=== PATIENT | male | born 1995 | race African-American/Black ===

== ENCOUNTER 2017-04-11 10:50 | Emergency (ER) | payer OTHER ==
[~2017-04-11] VITALS: Ht 182.9 cm; Wt 86.2 kg
[~2017-04-11 10:50] MED LIST: FLONASE 0.05%50 MCG NASAL; LORATIDINE 10 M10 M1 PO; MEDROLDOSEPACK PO; PREDNISONE 20 M20 MG PO; PROAIR HFA8.5 GM INH; PROMETHAZINE D480 ML PO; PROMETHAZINE-C120 ML PO; PROMETHAZINE/C118 ML PO; TESSALON PERLE100 MG PO; VENTOLIN HFA 1818 GM INH; ZPAK PO; ZYRTEC 10 MG TA10 MG PO
[2017-04-11] MEDS ORDERED: MUCINEX D ER 11 EACH PO (11:07)
[2017-04-11] MEDS ORDERED: DELSYM COUGH+C180 M1 PO (11:07)
[2017-04-11] MEDS ORDERED: PREDNISONE 20 M20 MG PO (12:24)
[2017-04-11] MEDS ORDERED: PROMETHAZI6.25 MG/5 PO (12:24)
[2017-04-11 12:53] VITALS: BP 127/69
== END 2017-04-11 12:50 | disposition home or self-care (01) ==
LOC: ER 10:50
DX: J20.8 Acute bronchitis due to other specified organisms (principal); F10.99 Alcohol use, unspecified with unspecified alcohol-induced disorder

== ENCOUNTER 2017-08-20 16:13 | Emergency (ER) | payer OTHER ==
[~2017-08-20] VITALS: Ht 182.9 cm; Wt 90.0 kg
[~2017-08-20 16:13] MED LIST changes: +DELSYM COUGH+C180 M1 PO; +MUCINEX D ER 11 EACH PO; +PROMETHAZI6.25 MG/5 PO
[2017-08-20] MEDS ORDERED: TESSALON PERLE100 MG PO (16:36)
[2017-08-20] MEDS ORDERED: VENTOLIN HFA 1818 GM INH (16:36)
[2017-08-20] MEDS ORDERED: GUAIFEN-CODEINE10 ML PO (16:36)
[2017-08-26] MEDS ORDERED: GUAIFENESIN-CO118 ML PO (16:00)
[2017-08-26] MEDS ORDERED: TESSALON PERLE100 MG PO (16:00)
[2017-08-26] MEDS ORDERED: VENTOLIN HFA 1818 GM INH (16:00)
[2017-10-12] MEDS ORDERED: PREDNISONE 20 M20 MG PO (19:21)
[2017-10-12] MEDS ORDERED: VENTOLIN HFA 1818 GM INH (19:21)
[2018-03-31] MEDS ORDERED: CLARITIN-D 121 EAC1 PO (18:13)
[2018-03-31] MEDS ORDERED: PREDNISONE 20 M20 MG PO (18:13)
[2018-03-31] MEDS ORDERED: VENTOLIN HFA 1818 GM INH (18:13)
== END 2017-08-20 17:11 | disposition home or self-care (01) ==
LOC: ER 16:13
DX: J40 Bronchitis, not specified as acute or chronic (principal)

== ENCOUNTER 2017-09-20 18:44 | Emergency (ER) | payer OTHER ==
[~2017-09-20] VITALS: Ht 182.9 cm; Wt 93.0 kg
[~2017-09-20 18:44] MED LIST changes: +GUAIFEN-CODEINE10 ML PO; +GUAIFENESIN-CO118 ML PO
[2017-09-20] MEDS ORDERED: PENICILLIN V P500 MG PO (19:06)
[2017-09-20] MEDS ORDERED: IBUPROFEN 600600 M1 PO (19:06)
[2017-10-12] MEDS ORDERED: VENTOLIN HFA 1818 GM INH (19:21)
[2017-10-12] MEDS ORDERED: PREDNISONE 20 M20 MG PO (19:21)
[2018-03-31] MEDS ORDERED: VENTOLIN HFA 1818 GM INH (18:13)
[2018-03-31] MEDS ORDERED: CLARITIN-D 121 EAC1 PO (18:13)
[2018-03-31] MEDS ORDERED: PREDNISONE 20 M20 MG PO (18:13)
== END 2017-09-20 19:35 | disposition home or self-care (01) ==
LOC: ER 18:44
DX: K04.7 Periapical abscess without sinus (principal); J06.9 Acute upper respiratory infection, unspecified

== ENCOUNTER 2017-10-14 15:33 | Emergency (ER) | payer OTHER ==
[~2017-10-14] VITALS: Ht 182.9 cm; Wt 93.0 kg
[~2017-10-14 15:33] MED LIST changes: +IBUPROFEN 600600 M1 PO; +PENICILLIN V P500 MG PO
[2017-10-14] MEDS ORDERED: PREDNISONE 20 M20 MG PO (16:03)
[2017-10-14] MEDS ORDERED: PROAIR HFA8.5 GM INH (16:03)
[2018-03-31] MEDS ORDERED: CLARITIN-D 121 EAC1 PO (18:13)
[2018-03-31] MEDS ORDERED: PREDNISONE 20 M20 MG PO (18:13)
[2018-03-31] MEDS ORDERED: VENTOLIN HFA 1818 GM INH (18:13)
== END 2017-10-14 16:12 | disposition home or self-care (01) ==
LOC: ER 15:33
DX: J98.8 Other specified respiratory disorders (principal); Z88.8 Allergy status to other drugs, medicaments and biological substances